=== PATIENT | female | born 1995 | race Caucasian/White ===

== ENCOUNTER 2016-11-10 21:44 | Emergency (ER) | payer OTHER ==
[2016-11-10] MEDS ORDERED: ONDANSETRON 4 MG/2 ML VIAL ONE (22:05)
[2016-11-10] MEDS ORDERED: NS 1,000 ML IV ONE (22:30)
--- NOTE | 2016-11-10 22:35 | EDPHY ---
H & P Time Seen by Provider: 11/10/16 21:58 HPI/ROS: CHIEF COMPLAINT: Suspected alcohol intoxication HISTORY OF PRESENT ILLNESS: 21-year-old female arrives via ambulance after she was found to be intoxicated in vomiting at a [employer]. No seizure activity. no reports of trauma or assault. She has no complaints of discomfort. REVIEW OF SYSTEMS: A ten point review of systems was performed and is negative with the exception of the items mentioned in the HPI PAST MEDICAL/SURGICAL HISTORY: no anticoagulant use, no relevant medical/ surgical history SOCIAL HISTORY: Positive for witnessed alcohol use PHYSICAL EXAM 1) GENERAL: Well-developed, well-nourished, somnolent, smells of alcohol, actively vomiting . 2) HEAD: Normocephalic, atraumatic 3) HEENT: Pupils equal, round, reactive to light bilaterally. Negative Horners. Nasopharynx, oropharynx, clear. No deformity or angulation of nose. No septal hematoma. No rhinorrhea. No oral trauma. Ears bilaterally with normal tympanic membranes. No hemotympanum. No fluid or blood in the external auditory canal. No raccoon eyes. No Mitchell sign. Teeth are normally aligned with no gross malocclusion, TMJ bilaterally nontender, facial bones nontender including the zygomatic arch, maxilla mandible. 4) NECK: No cervical collar is on. Posterior cervical spine is nontender, no stepoff, no effusion. Full range of motion which does not elicit any midline cervical spine pain, no posterior midline tenderness, no step-off. Cervical collar is on.Cervical collar is removed while holding inline traction 5) LUNGS: Clear to auscultation bilaterally, no wheezes, no rhonchi, no retractions. No obvious signs of trauma. No chest wall pain. No flaring, no grunting. Moving symmetrically. No crepitus. 6) HEART: Regular rate and rhythm, 7) ABDOMEN: No guarding, no rebound, no focal tenderness, no peritoneal signs, no signs of trauma, no ecchymosis 8) MUSCULOSKELETAL: Moving all extremities, no focal areas of tenderness, no obvious trauma. 9) BACK:No midline vertebral tenderness, no fluctuance, no step-off, no obvious trauma, no visual or palpable abnormality. 10) SKIN: No laceration. No abrasion DIFFERENTIAL DIAGNOSIS: inno particular order including but not limited to acute alcohol intoxication, polysubstance abuse, trauma - Personal History Tetanus Vaccine Date: within last 10 years - Medical/Surgical History Hx Asthma: No Hx Chronic Respiratory Disease: No Hx Diabetes: No Hx Cardiac Disease: No Hx Renal Disease: No Hx Cirrhosis: No Hx Alcoholism: No Hx HIV/AIDS: No Hx Splenectomy or Spleen Trauma: No Other PMH: depression, minocycline for acne - Social History Smoking Status: Never smoked Constitutional: Initial Vital Signs Temperature (C) 36.6 C 11/10/16 21:45 Heart Rate 122 H 11/10/16 21:45 Respiratory Rate 18 11/10/16 21:45 Blood Pressure 129/64 H 11/10/16 21:45 O2 Sat (%) 95 11/10/16 21:45 O2 Delivery Mode Room Air Allergies/Adverse Reactions: No Known Allergies Allergy (Unverified 01/27/14 18:18) Home Medications: Medication Instructions Recorded Acyclovir [Zovirax 400 mg (*)] 400 mg PO 5XD PRN 01/27/14 Minocycline HCl [Minocin] 100 mg PO BID 01/27/14 Medical Decision Making ED Course/Re-evaluation: 10:30 p.m.: Patient is somnolent, unable to ambulate without assistance. EMS reports that her boyfriend is en route. Patient re-evaluated with serial exams. She is progressively more sober in the emergency department. Her sober boyfriend is here to pick her up. She has exhibited being awake alert oriented person place time events with stable steady gait clear speech pattern. Discussed alcohol moderation in the future - Data Points Laboratory Results: 11/10/16 22:30 Ethyl Alcohol 338 mg/dL H mg/dL (0-10) Medications Given: Discontinued Medications Sodium Chloride (Ns) 1,000 mls @ 0 mls/hr IV ONCE ONE PRN Reason: Wide Open Stop: 11/10/16 22:31 Last Admin: 11/10/16 22:35 Dose: 1,000 mls Ondansetron HCl (Zofran) 4 mg IVP EDNOW ONE Stop: 11/10/16 23:33 Last Admin: 11/10/16 23:33 Dose: 4 mg Departure - Departure Disposition: Home, Routine, Self-Care Clinical Impression: Alcohol intoxication Qualifiers: Complication of substance-induced condition: uncomplicated Qualified Code(s): F10.920 - Alcohol use, unspecified with intoxication, uncomplicated Condition: Good Instructions: Alcohol Intoxication (ED) Referrals: [facility] Hours [Outside] - 1 day without fail
[2016-11-10 22:52] VITALS: RESP 18; O2SAT 95
[2016-11-10 23:25] LABS: ETHANOL SERUM 338 mg/dL (0-10)
[2016-11-10] MEDS ORDERED: ONDANSETRON 4 MG/2 ML VIAL IVP ONE (23:32)
[2016-11-11 00:28] VITALS: BP 136/82; PULSE 90; TEMP 97.5
== END 2016-11-11 00:28 | disposition home or self-care (01) ==
LOC: EDUNIT#
DX: F10.920 Alcohol use, unspecified with intoxication, uncomplicated (principal)
CPT/HCPCS: 96374; G0480; J2405